=== PATIENT | male | born 1975 | race Caucasian/White ===

== ENCOUNTER 2016-09-24 20:19 | Day surgery (SDC) | payer OTHER ==
[~2016-09-24] VITALS: Ht 180.3 cm; Wt 71.1 kg
[2016-09-24] MEDS ORDERED: GLUCAGON FOR INJ 1 MG VIAL (J1610) IV STA (21:34)
[2016-09-24] MEDS ORDERED: PANTOPRAZOLE 40MG INJ (PROTONIX) (C9113) IV ONE (21:45)
[2016-09-24] MEDS ORDERED: ONDANSETRON 4MG/2ML VIAL (J2405) IV ONE (21:45)
[2016-09-24] MEDS ORDERED: MORPHINE 2 MG/ML 1ML SYRINGE IV PRN (21:45)
[2016-09-24] MEDS: NS 1,000 ML IV SCH (21:49)
[2016-09-24 21:55] LABS: BASO % 0.5 % (0.0-1.0); EOS # 0.2 K/mm3 (0.0-0.50); EOS % 2.7 % (0.0-3.0); LARGE UNSTAINED CELL # 0.1 K/mm3 (0.0-0.4); LYMPH # 1.6 K/mm3 (1.5-4.5); LYMPH % 21.2 % (24.0-44.0); MEAN CORPUSCULAR HEMOGLOBIN 28.6 pg (27.0-33.0); MEAN CORPUSCULAR HGB CONC 33.2 g/dl (32.0-36.5); MEAN CORPUSCULAR VOLUME 86.1 fl (80.0-96.0); MONO # 0.3 K/mm3 (0.0-0.8); MONO % 3.5 % (0.0-5.0); NEUTROPHILS # 5.3 K/mm3 (1.8-7.7); PLATELET COUNT, AUTOMATED 246 k/mm3 (150-450); RED CELL DISTRIBUTION WIDTH 12.7 % (11.5-14.5); WHITE BLOOD COUNT 7.5 K/mm3 (4.0-10.0)
[2016-09-24 22:04] LABS: INR 0.94
[2016-09-24 22:15] LABS: ALBUMIN 4.3 GM/DL (3.2-5.2); ALBUMIN/GLOBULIN RATIO 1.34 (1.00-1.93); ALKALINE PHOSPHATASE 59 U/L (45-117); ALT/SGPT 20 U/L (12-78); ANION GAP 6 MEQ/L (8-16); AST/SGOT 13 U/L (15-37); BILIRUBIN,DIRECT 0.1 MG/DL (0.0-0.2); BILIRUBIN,TOTAL 0.4 MG/DL (0.2-1.0); BLOOD UREA NITROGEN 9 MG/DL (7-18); CALCIUM LEVEL 8.8 MG/DL (8.5-10.1); CARBON DIOXIDE LEVEL 30 MEQ/L (21-32); CHLORIDE LEVEL 105 MEQ/L (98-107); GLOMERULAR FILTRATION RATE > 60.0 (>60); GLUCOSE, FASTING 99 MG/DL (70-105); POTASSIUM SERUM 4.3 MEQ/L (3.5-5.1); SODIUM LEVEL 141 MEQ/L (136-145); TOTAL PROTEIN 7.5 GM/DL (6.4-8.2)
[2016-09-25] MEDS: NS 1,000 ML IV SCH (00:12)
[2016-09-25] MEDS ORDERED: LIDOCAINE 2% INJ 100 MG/5 ML SDV (FOR ANES.) As Ordered ONE (01:41)
[2016-09-25] MEDS ORDERED: PROPOFOL 200 MG/20 ML VIAL As Ordered ONE (01:41)
[2016-09-25] MEDS ORDERED: fentaNYL 100 MCG/2 ML INJECTION (J3010) As Ordered ONE (01:41)
[2016-09-25] MEDS ORDERED: SUCCINYLCHOLINE 100 MG/5 ML SYRINGE (J0330) As Ordered ONE (01:41)
[2016-09-25] MEDS ORDERED: MIDAZOLAM INJ 2 MG/2 ML VIAL (J2250) As Ordered ONE (01:41)
--- NOTE | 2016-09-25 02:07 | REP ---
Clinical: Lower chest and abdominal pain . Comparison: 02/16/2011 . Technique: PA and lateral. Findings: The mediastinum and cardiac silhouette are normal. The lung mae are clear and without acute consolidation, effusion, or pneumothorax. The skeletal structures are intact and normal. Impression: 1. No acute cardiopulmonary process. Signed by Romaine Pace MD 09/25/2016 01:59 A
[2016-09-25] MEDS ORDERED: PERCOCET 5MG/325MG TAB As Ordered ONE (02:11)
[2016-09-25] MEDS ORDERED: ONDANSETRON 4MG/2ML VIAL (J2405) IV PRN (02:15)
[2016-09-25] MEDS ORDERED: METOCLOPRAMIDE INJ 10MG/2ML VIAL (J2765) IV PRN (02:15)
[2016-09-25] MEDS ORDERED: fentaNYL 100 MCG/2 ML INJECTION (J3010) IV PRN (02:15)
[2016-09-25] MEDS ORDERED: MEPERIDINE INJ 25 MG/ML VIAL (J2175) IV PRN (02:15)
[2016-09-25] MEDS ORDERED: PERCOCET 5MG/325MG TAB PO PRN (02:15)
[2016-09-25] MEDS ORDERED: LR 1,000 ML IV SCH (02:15)
[2016-09-25 02:30] VITALS: BP 104/71
[2016-09-25 03:00] VITALS: BP 101/59
[2016-09-25 03:30] VITALS: BP 108/62
--- NOTE | 2016-09-27 09:16 | CR ---
DATE OF CONSULTATION: 09/25/2016 REASON FOR CONSULTATION: 40-year white male who presents to emergency room for food impaction. The patient has a known history of pathology diagnosed eosinophilic esophagitis. The patient has lost 30-40 pounds, he used to weigh 190 and now he weighs 150. He consistently has trouble with food getting stuck. He has had a previous upper endoscopy with balloon dilatation and biopsies about a year ago, which the diagnosis of eosinophilic esophagitis was noted. The patient now presents again with another food impaction after eating a steak. MEDICATIONS: None. ALLERGIES: PENICILLIN. PHYSICAL EXAMINATION: GENERAL: Well developed, well-nourished white male in no obvious acute distress. Appears stated age. Chest is clear to auscultation. Cardiovascular exam showed regular rhythm. No murmurs or gallops. Normal physiological split of S2. ABDOMEN: Soft, nontender. No masses, guarding, rebound, hepatosplenomegaly. Bowel sounds positive. EXTREMITIES: No cyanosis, clubbing, edema. Rocio's negative. ANALYSIS: Esophageal food impaction. PLAN: Urgent upper endoscopy under general anesthesia and we will consider restarting his PPI twice a day and repeat upper endoscopy with dilatation as an outpatient.
--- NOTE | 2016-09-28 22:20 | RO ---
DATE OF PROCEDURE: 09/25/2016 PREPROCEDURE DIAGNOSIS/INDICATIONS: Possible Esophageal food impaction. POSTPROCEDURE DIAGNOSIS: PROCEDURE: Esophagogastroduodenoscopy. SURGEON: Andrew More MD WHOLESALE ACCOUNT EXECUTIVE: ANESTHESIA/MEDICATION: General anesthesia. DESCRIPTION OF PROCEDURE: Olympus GIF-190 video gastroscope was passed into the esophagus under direct vision without difficulty. No evidence of esophageal varices, tumors, or mass lesions seen. The esophagus showed endoscopic findings consistent with a known previous diagnosis of eosinophilic esophagitis. There was no evidence of any food impaction. Passed the scope into the stomach, and the food impaction was noted in a pool of fluid in the cardiac stomach. The rest of the cardia, fundus, body, antrum, pylorus, and duodenal bulb was found to be normal. We then withdrew the scope. The patient tolerated the procedure well. ANALYSIS: Esophageal food impaction, resolved at present time. PLAN: 1. Will be to see patient back in the office for repeat upper endoscopy with dilatation. 2. The patient should be maintained on a proton pump inhibitor twice a day. 3. Blenderized and soft liquid diet, soft foods only. No meat or chicken or pork has been advised.
== END 2016-09-25 03:45 | disposition home or self-care (01) ==
LOC: M ED 20:19 → M SDC 20:20 → M ED INP 09-25 00:35 → M SDC 09-25 00:35 → M PED 09-25 00:35 → M ED 09-25 00:35 → UNDOADMIN 09-25 00:35 → M PED 09-25 02:30 → M ED INP 09-25 02:30 → M PED 09-25 03:45 → M SDC 09-25 03:45 → M PED 09-25 04:07 → M ED INP 09-25 04:07 → UNDODISIN 09-25 04:08
PROVIDERS: ATTEND Internal Medicine Gastroenterology
DX: T17.920A Food in respiratory tract, part unspecified causing asphyxiation, initial encounter (principal); X58.XXXA Exposure to other specified factors, initial encounter; Y92.89 Other specified places as the place of occurrence of the external cause; Y93.89 Activity, other specified; Y99.8 Other external cause status; K20.0 Eosinophilic esophagitis; Z88.0 Allergy status to penicillin

== ENCOUNTER 2017-11-17 08:49 | Day surgery (SDC) | payer OTHER ==
[2017-11-17] MEDS: GLUCAGON FOR INJ 1 MG VIAL (J1610) IV (09:25)
[2017-11-17] MEDS: NS 1,000 ML IV (09:29)
[2017-11-17 09:39] LABS: BASO % 0.5 % (0.0-1.0); EOS # 0.4 10^3/uL (0.0-0.50); EOS % 6.9 % (0.0-3.0); HEMOGLOBIN 13.4 g/dl (13.5-17.5); IMMATURE GRANULOCYTE % 0.2 % (0-3.0); LYMPH % 31.4 % (24.0-44.0); MEAN CORPUSCULAR HGB CONC 32.7 g/dl (32.0-36.5); MEAN CORPUSCULAR VOLUME 85.8 fl (80.0-96.0); MONO # 0.5 10^3/uL (0.0-0.8); MONO % 7.9 % (0.0-5.0); NEUTROPHILS # 3.4 10^3/uL (1.8-7.7); NEUTROPHILS % 53.1 % (36.0-66.0); PLATELET COUNT, AUTOMATED 243 10^3/uL (150-450); RED BLOOD COUNT 4.78 10^6/uL (4.30-6.10); RED CELL DISTRIBUTION WIDTH 12.9 % (11.5-14.5); WHITE BLOOD COUNT 6.4 10^3/uL (4.0-10.0)
[2017-11-17 09:53] LABS: ANION GAP 9 MEQ/L (8-16); BLOOD UREA NITROGEN 12 MG/DL (7-18); CALCIUM LEVEL 8.8 MG/DL (8.5-10.1); CARBON DIOXIDE LEVEL 26 MEQ/L (21-32); CHLORIDE LEVEL 108 MEQ/L (98-107); CPK CREATINE PHOSPHOKINASE 145 U/L (39-308); CREATININE FOR GFR 0.94 MG/DL (0.70-1.30); GLOMERULAR FILTRATION RATE > 60.0 (>60); GLUCOSE, FASTING 100 MG/DL (70-100); MB/CK RELATIVE INDEX 0.76 (< OR =4); POTASSIUM SERUM 3.8 MEQ/L (3.5-5.1); SODIUM LEVEL 143 MEQ/L (136-145); TROPONIN I < 0.02 NG/ML (< 0.10)
[2017-11-17] MEDS: NITROGLYCERIN 0.4 MG SUBL TABLET SL (10:14)
[2017-11-17] MEDS ORDERED: MORPHINE 2 MG/ML 1ML SYRINGE (J2270) IV (10:45)
[2017-11-17] MEDS ORDERED: LIDOCAINE 2% INJ 100 MG/5 ML SDV (FOR ANES.) As Ordered (10:55)
[2017-11-17] MEDS ORDERED: SUCCINYLCHOLINE 100 MG/5 ML SYRINGE (J0330) As Ordered (10:55)
[2017-11-17] MEDS ORDERED: PROPOFOL 200 MG/20 ML VIAL As Ordered ×2 (10:55→11:37)
[2017-11-17] MEDS ORDERED: ROCURONIUM BROMIDE 50 MG/5 ML VIAL As Ordered (10:55)
[2017-11-17] MEDS ORDERED: fentaNYL 100 MCG/2 ML INJECTION (J3010) As Ordered (10:56)
[2017-11-17] MEDS ORDERED: MIDAZOLAM INJ 2 MG/2 ML VIAL (J2250) As Ordered (10:56)
[2017-11-17] MEDS ORDERED: GLYCOPYRROLATE INJ 0.2 MG/ML 2 ML VIAL As Ordered (11:42)
[2017-11-17] MEDS ORDERED: NEOSTIGMINE 10 MG/10 ML VIAL (J2710) As Ordered (11:42)
[2017-11-17] MEDS ORDERED: dexameTHASONE 4 MG/ML 1ML VIAL (J1100) As Ordered (11:45)
[2017-11-17] MEDS ORDERED: ONDANSETRON 4MG/2ML VIAL (J2405) As Ordered (11:45)
== END 2017-11-17 13:35 | disposition home or self-care (01) ==
LOC: M ED 08:49 → M SDC 10:48 → M PED 12:45 → M SDC 13:35
DX: T18.128A Food in esophagus causing other injury, initial encounter (principal); K22.9 Disease of esophagus, unspecified; Z72.0 Tobacco use; X58.XXXA Exposure to other specified factors, initial encounter; Y93.89 Activity, other specified; Y92.89 Other specified places as the place of occurrence of the external cause; Y99.9 Unspecified external cause status
CPT/HCPCS: 43215

== ENCOUNTER 2020-12-06 11:23 | Inpatient (IN) | payer OTHER ==
[~2020-12-06] VITALS: Ht 180.3 cm; Wt 92.7 kg
[2020-12-06] MEDS ORDERED: ONDANSETRON 4MG/2ML VIAL IV ONE (12:45)
[2020-12-06] MEDS ORDERED: MORPHINE 4 MG/ML 1ML VIAL/SYRINGE (J2270) IV ONE ×2 (12:45→14:05)
[2020-12-06 13:25] LABS: BASO % 0.1 % (0.0-1.0); HEMATOCRIT 41.4 % (42.0-52.0); HEMOGLOBIN 13.3 g/dl (13.5-17.5); LYMPH % 8.7 % (24.0-44.0); MEAN CORPUSCULAR HEMOGLOBIN 26.6 pg (27.0-33.0); MEAN CORPUSCULAR HGB CONC 32.1 g/dl (32.0-36.5); MEAN CORPUSCULAR VOLUME 82.8 fl (80.0-96.0); MONO % 8.3 % (2.0-8.0); NEUTROPHILS # 9.8 10^3/uL (1.5-8.5); NEUTROPHILS % 81.5 % (36.0-66.0); PLATELET COUNT, AUTOMATED 517 10^3/uL (150-450)
[2020-12-06 13:57] LABS: ALBUMIN 2.3 GM/DL (3.2-5.2); ALT/SGPT 126 U/L (12-78); AMYLASE 181 U/L (25-115); BILIRUBIN,DIRECT 0.3 MG/DL (0.0-0.2); BILIRUBIN,TOTAL 0.7 MG/DL (0.2-1.0); BLOOD UREA NITROGEN 9 MG/DL (7-18); CALCIUM LEVEL 7.8 MG/DL (8.5-10.1); CARBON DIOXIDE LEVEL 28 MEQ/L (21-32); CHLORIDE LEVEL 100 MEQ/L (98-107); CK-MB VALUE MASS 1.2 NG/ML (<3.6); CPK CREATINE PHOSPHOKINASE 157 U/L (39-308); CREATININE FOR GFR 0.84 MG/DL (0.70-1.30); GLOMERULAR FILTRATION RATE > 60.0 (>60); GLUCOSE, FASTING 99 MG/DL (70-100); LIPASE 1028 U/L (73-393); MB/CK RELATIVE INDEX 0.76 (< OR =4); POTASSIUM SERUM 3.8 MEQ/L (3.5-5.1); SODIUM LEVEL 136 MEQ/L (136-145); TOTAL PROTEIN 6.9 GM/DL (6.4-8.2); TROPONIN I < 0.02 NG/ML (< 0.10)
[2020-12-06] MEDS ORDERED: NS 1,000 ML IV SCH (14:10)
[2020-12-06] MEDS: GASTROGRAFIN SOLUTION 30ML PO SCH ×2 (14:46→14:49)
[2020-12-06] MEDS ORDERED: ISOVUE-370 76% 100ML VIAL As Ordered ONE (15:06)
[2020-12-06 15:57] LABS: RSV AMPLIFICATION NEGATIVE (NEGATIVE)
[2020-12-06] MEDS ORDERED: HYDROMORPHONE HCL 0.5 MG/ 0.5 ML SYRINGE (J1170 PER 1) IV PRN (16:20)
--- NOTE | 2020-12-06 16:29 | REP ---
INDICATION: abd pain. COMPARISON: None TECHNIQUE: Axial contrast-enhanced images from the lung bases to the pubic symphysis using oral and 100 cc Isovue 370 intravenous contrast material. Coronal and sagittal reformations obtained. This CT examination was performed using the following dose reduction techniques: Automated exposure control, adjustment of mA and/or kv according to the patient's size, and the use of iterative reconstruction technique. FINDINGS: Lung bases demonstrate extensive airspace disease consistent with multifocal pneumonia. Differential diagnosis includes COVID-19 pulmonary disease. Liver demonstrates diffuse fatty infiltration without focal hepatic lesion. Spleen, pancreas, gallbladder, bilateral adrenal glands and kidneys are normal. Moderate hiatal hernia at the gastroesophageal junction noted. No evidence for bowel obstruction or acute inflammatory process. Scattered sigmoid diverticula noted without acute diverticulitis. Normal terminal ileum and appendix identified in the right lower quadrant. Pelvis demonstrates normal bladder and age-appropriate prostate/seminal vesicles. No ascites. No free air. No intraperitoneal or retroperitoneal adenopathy. Abdominal aorta and vasculature appear normal. Musculoskeletal structures are intact and without acute osseous abnormality. IMPRESSION: 1. Significant diffuse bilateral pulmonary infiltrates consistent with multifocal pneumonia and COVID-19 pulmonary disease. Correlation is required. 2. Hepatosteatosis. 3. No further acute abdominopelvic pathology appreciated. <Electronically signed by Romaine Pace > 12/06/20 [id number]
[2020-12-06] MEDS ORDERED: HOME MED LIST COMPLETE! XX SCH (17:15)
[2020-12-06] MEDS ORDERED: IBUPROFEN 600MG TAB PO PRN (17:20)
[2020-12-06] MEDS ORDERED: MORPHINE 4 MG/ML 1ML VIAL/SYRINGE (J2270) IV PRN (17:20)
[2020-12-06] MEDS ORDERED: PANTOPRAZOLE 40MG VIAL (C9113 PER 1) IV SCH (18:00)
[2020-12-06] MEDS: LR 1,000 ML IV SCH ×2 (19:12→21:53)
--- NOTE | 2020-12-06 19:22 | ECGEPIP ---
[facility] - ED Test Date: 2020-12-06 Pat Name: CARLOS MENJIVAR Department: Room: - Gender: Male [employer]: daemon : 1975 Requested By: William Paulino Order Number: [id number] Reading MD: William Paulino Measurements Intervals [place] Rate: 93 P: 26 W[place]: 178 QRS: 1 QRSD: 78 T: 3 QT: 346 QTc: 430 Interpretive Statements Normal sinus rhythm Nonspecific T wave abnormality Delayed R wave progression cw 11/17/[address] T wave changes Electronically Signed on 12-06-2020 19:22:32 EDT by William Paulino
[2020-12-06 20:00] VITALS: BP 116/67; O2SAT 86
[2020-12-06] MEDS ORDERED: MORPHINE 2 MG/ML 1ML VIAL (J2270) IV ONE (20:45)
--- NOTE | 2020-12-06 21:30 | HPEPDOC ---
General Date of Admission Dec 06, 2020 at 16:46 Date of Service: Dec 06, 2020 Chief Complaint The patient is a 45-year-old male admitted with a reason for visit of Covid, Pancreatitis. Source: Patient History of Present Illness 45-year-old male with no past medical history presented to the emergency room with 2 days history of nausea, vomiting, diarrhea and headache. Patient's was also sick today and dog was also sick. Patient initially felt that they may have had carbon monoxide exposure so called fire department. Fire department found a carbon monoxide of 44 bpm from the stove when turned on. EMS was called and patient was brought to the emergency room for suspected carbon monoxide exposure. Carbon monoxide level in the patient was only 2%. In the ED he complained of severe periumbilical pain. Constant sharp 10/10 in intensity which required several doses of morphine and hydromorphine to control. Patient was also noted to be febrile at 100.2. He also complained of 3-4 episodes of diarrhea every day for 2 days which was liquid brown stool. He has been nauseous and vomiting and has not been able to keep any food down. COVID testing in the ED was found to be positive. Patient is unvaccinated. Labs were significant for transaminitis, elevated lipase. Patient was admitted for acute pancreatitis and COVID infection. Home Medications Scheduled PRN Hydrocodone/Acetaminophen (Hydrocodone-Acetamn 7.5-325/15) 15 Ml Solution, 10 ML PO Q4HP PRN for SEVERE PAIN (PS 8-10) Ondansetron HCl (Zofran) 4 Mg Tablet, 1 TAB PO Q6HP PRN for NAUSEA Allergies Coded Allergies: Penicillins (Verified Allergy, Unknown, SOB, 12/06/20) Past Medical History Medical History Eosinophilic esophagitis with history of food infective impaction in the esophagus needing balloon dilatations Schatzi ring dilated Ankylosing spondylitis Chronic pain syndrome with h/o chronic narcotic use in the past. Hiatal hernia and reflux Surgical History None Family History Significant Family History: Cancer (Father), COPD (Father), Heart disease, Other (Ankylosing spondylitis in both father and mother) Social History * Smoker: non-smoker Alcohol: Denies Drugs: denies A-FIB/CHADSVASC A-FIB History Current/History of A-Fib/PAF?: No Review of Systems Constitutional: Reports: Fever, Weakness, Fatigue Eyes: Denies: Pain, Vision change ENT: Reports: Sinus Congestion, Sore Throat Skin: Denies: Rash, Lesions, Breakdown Pulmonary: Reports: Cough Cardiovascular: Denies: Chest Pain, Palpitations, Orthopnea, Paroxysmal Noc. Dyspnea, Lt Headedness Gastrointestinal: Reports: Nausea, Vomiting, Abdominal Pain, Diarrhea Genitourinary: Denies: Dysuria, Frequency, Incontinence, Retention Hematologic: Denies: Bruising, Bleeding Excessively Musculoskeletal: Reports: Back Pain, Joint Pain; Denies: Neck Pain, Muscle Pain, Spasms Physical Examination General Exam: Positive: Alert, Cooperative, No Acute Distress Eye Exam: Positive: PERRLA, Conjunctiva & lids normal, EOMI; Negative: Sclera icteric ENT Exam: Positive: Atraumatic, Mucous membr. moist/pink, Pharynx Normal Neck Exam: Positive: Supple; Negative: JVD, thyromegaly Chest Exam: Positive: Normal air movement, Other (Bibasilar crackles) Heart Exam: Positive: Rate Normal, Regular Rhythm, Normal S1, Normal S2; Negative: Murmurs, Rubs Abdomen Exam: Positive: Normal bowel sounds, Soft, Tenderness (In the periumbilical region), Other (No guarding or rigidity); Negative: Hepatospenomegaly Extremity Exam: Negative: Clubbing, Cyanosis, Edema Psych Exam: Positive: Memory Intact, Oriented x 3 Vital Signs Vital Signs Date Time Temp Pulse Resp B/P (MAP) Pulse Ox O2 Delivery O2 Flow Rate FiO2 12/06/20 20:21 20 Room Air 12/06/20 19:32 84 108/61 (77) 94 12/06/20 16:38 100.2 12/06/20 13:07 12.0 Laboratory Data Labs 24H Laboratory Tests 2 12/06/20 11:41: Immature Granulocyte % (Auto) 1.4, Neutrophils (%) (Auto) 81.5H, Lymphocytes (%) (Auto) 8.7L, Monocytes (%) (Auto) 8.3H, Eosinophils (%) (Auto) 0.0, Basophils (%) (Auto) 0.1, Neutrophils # (Auto) 9.8H, Lymphocytes # (Auto) 1.0L, Monocytes # (Auto) 1.0H, Eosinophils # (Auto) 0.0, Basophils # (Auto) 0.0, Nucleated Red Blood Cells % (auto) 0.0, Carboxyhemoglobin 2.0H, Anion Gap 8, Glomerular Filtration Rate > 60.0, Calcium Level 7.8L, Total Bilirubin 0.7, Direct Bilirubin 0.3H, Aspartate Amino Transf (AST/SGOT) 118H, Alanine Aminotransferase (ALT/SGPT) 126H, Alkaline Phosphatase 161H, Total Creatine Kinase 157, Creatine Kinase MB 1.2, Creatine Kinase MB Relative Index 0.76, Troponin I < 0.02, Total Protein 6.9, Albumin 2.3L, Albumin/Globulin Ratio 0.5, Amylase Level 181H, Lipase 1028H 12/06/20 14:44: Coronavirus (COVID-19)(PCR) POSITIVEA, Influenza Type A (RT-PCR) NEGATIVE, Influenza Type B (RT-PCR) NEGATIVE, Respiratory Syncytial Virus (PCR) NEGATIVE CBC/BMP Laboratory Tests 12/06/20 11:41 Assessment/Plan 45-year-old male with no past medical history presented to the emergency room wi th 2 days history of nausea, vomiting, diarrhea and headache. He was found to have a transaminitis, elevated lipase and he was positive for COVID though not hypoxic. CT abdomen and pelvis was negative for any acute abdominal findings but did show. Significant diffuse bilateral pulmonary infiltrates consistent with multifocal pneumonia and COVID-19 pulmonary disease, Hyposteatosis and moderate hiatal hernia. COVID-19 pneumonia No hypoxia at present. Monitor oxygen saturations every 4 hours. Will get Covid labs Will not start on any Decadron. If patient becomes hypoxic then will start on steroids and remdesivir Abdominal pain Disproportionate to clinical findings requiring more of several doses of morphine and hydromorphine Possible acute pancreatitis Patient has transaminitis CT abdomen and pelvis did not show any biliary tree dilatation or CBD dilatation and did not reveal any gallstones in the gallbladder.. Pancreas was normal We will get MRCP of the abdomen to get a better picture of the pancreas and to rule out any biliary tree obstruction. There is no history of any medication intake and no history of any alcohol intake. Acute pancreatitis could be part of viral infection. We will keep n.p.o. except for ice chips and sips of water Start on Ringer's lactate Transaminitis Rule out biliary obstruction We will get MRCP But likely this is part of Covid infection. History of ankylosing spondylitis/chronic back pain Patient needs to follow with pain clinic many years ago and used to be on narcotics. Eosinophilic esophagitis/hiatal hernia/GERD Continue PPI twice daily Plan / VTE VTE Prophylaxis Ordered?: Yes Nehal Morley MD Dec 06, 2020 20:55
--- NOTE | 2020-12-06 21:32 | IPNPDOC ---
Text Note Date of Service Significant event NOTE Patient pain uncontrolled by morphine. Notably crying position. Plan for Dilaudid trial with parameters. Consider de-escalation in a.m. pending patient response Update: Pt spo2 84-86% on RA. Pt seen at bedside; he is resting comfortably upon exam entrance, appears to be dozing off. Nonlabored breathing. Spo2 RA 89%, RR 14. O2 2L NC applied pt 92%. Pt reports he is 5/10 abdominal pain center region; which is improved as he has "been in pain all night" and the inc to 0.6mg dilaudid helped. Hr 76 RRR, He describes some SOB, but reports he is breathing better now. He is concerned about his pain medication being held now as he is hypoxic; however he does have noticeable lower rales and thus desat could be covid v medication component. As he is alert and RR greater than 12 will not give narcan presently. CXR ordered given desat and ABG. However, with chart review MRI abd had been completed and showed lower consolidation. Also showed "No cholelithiasis or choledocholithiasis. No dilation of the bile ducts." Will initiate covid treatment with remdesivir, breathing treatments and steroids as noted in attendings note. At present Dilaudid held. Pt has toradol prn during this monitoring period. VS,Fishbone, I+O VS, Fishbone, I+O Laboratory Tests 12/06/20 11:41 Vital Signs Date Time Temp Pulse Resp B/P (MAP) Pulse Ox O2 Delivery O2 Flow Rate FiO2 12/06/20 20:21 20 Room Air 12/06/20 19:32 84 108/61 (77) 94 12/06/20 16:38 100.2 12/06/20 13:07 12.0 GILES CHARLES NP Dec 06, 2020 21:32
[2020-12-06] MEDS: HYDROMORPHONE HCL 0.5 MG/ 0.5 ML SYRINGE (J1170 PER 1) IV PRN (21:54)
[2020-12-06 23:35] LABS: INR 1.34
[2020-12-06 23:36] LABS: PARTIAL THROMBOPLASTIN TIME 37.5 SECONDS (25.9-37.0)
[2020-12-06 23:38] LABS: D-DIMER QUANT 3748.44 ng/ml (<500)
[2020-12-06 23:49] LABS: ALBUMIN 1.9 GM/DL (3.2-5.2); BILIRUBIN,DIRECT 0.2 MG/DL (0.0-0.2); BILIRUBIN,TOTAL 0.5 MG/DL (0.2-1.0); TOTAL PROTEIN 5.7 GM/DL (6.4-8.2)
[2020-12-07] VITALS: O2SAT 91
[2020-12-07] MEDS: KETOROLAC 30 MG/ML 1ML VIAL IV PRN ×3 (00:33→17:27)
--- NOTE | 2020-12-07 00:59 | REPVR ---
PROCEDURE INFORMATION: Exam: MR Abdomen Without Contrast Exam date and time: 12/06/2020 11:48 PM Age: 45 years old Clinical indication: Abdominal pain; Acute; Additional info: Pancreatits / choledocholithiasis. The patient was unable to complete the examination. TECHNIQUE: Imaging protocol: MR of the abdomen without contrast. COMPARISON: CT ABD/PEL W/IV ORAL CONTRAST 12/06/2020 4:07 PM (The report from this study was not available for review at the time of this interpretation.) FINDINGS: Lungs: There is extensive patchy consolidation in both lower lobes, right middle lobe, and lingula, which can also be seen in the CT abdomen and pelvis on 12/06/2020. The lungs were not fully imaged. Mediastinal space: There is a moderate to large hiatal hernia. Liver: Unremarkable. No liver lesion is identified. The contour of the liver is smooth. No hepatomegaly is noted. Gallbladder and bile ducts: No stones or masses are seen in the gallbladder. There is no gallbladder wall thickening, pericholecystic fluid, or inflammatory fat stranding around the gallbladder. No dilation of the bile ducts is present. The common bile duct is normal caliber measures 3 mm in diameter. No choledocholithiasis is noted. Pancreas: Normal in appearance. No mass or dilation of the main pancreatic duct is noted. No inflammatory fat stranding is seen around the pancreas. Spleen: Normal. No splenomegaly is noted. Adrenal glands: Normal. No adrenal mass is noted. Kidneys and ureters: The kidneys are normal in appearance. No hydronephrosis. Stomach and bowel: No dilated loops of bowel are noted. The bowel was not fully imaged. Retroperitoneal space: Unremarkable. Intraperitoneal space: No fluid collection in the abdomen. Arteries: No abdominal aortic aneurysm. Lymph nodes: No enlarged lymph nodes. Bones/joints: Unremarkable. Soft tissues: Unremarkable. IMPRESSION: 1. No cholelithiasis or choledocholithiasis. No dilation of the bile ducts. 2. Extensive patchy consolidation in both lower lobes, right middle lobe, and lingula, which can also be seen in the CT abdomen and pelvis on 12/06/2020 and may represent pneumonia, including COVID-19 pneumonia. 3. Moderate to large hiatal hernia. Electronically signed by: Wero Medina On 12/07/2020 00:59:29 AM
[2020-12-07] MEDS: HYDROMORPHONE HCL 0.5 MG/ 0.5 ML SYRINGE (J1170 PER 1) IV PRN ×6 (02:26→21:47)
[2020-12-07] MEDS: LR 1,000 ML IV SCH ×4 (03:34→19:25)
[2020-12-07] MEDS ORDERED: diphenhydrAMINE 50MG/ML VIAL (J1200) IV ONE (04:45)
[2020-12-07] MEDS ORDERED: HYDROMORPHONE HCL 0.5 MG/ 0.5 ML SYRINGE (J1170 PER 1) IV PRN ×2 (04:45→08:15)
[2020-12-07] MEDS: PANTOPRAZOLE 40MG VIAL (C9113 PER 1) IV SCH ×2 (05:34→17:27)
[2020-12-07] MEDS ORDERED: NALOXONE INJ 0.4MG/1ML VIAL (J2310 PER 1MG) IV STA (05:53)
[2020-12-07] MEDS ORDERED: dexameTHASONE 4 MG/ML 1ML VIAL (J1100 PER 1MG) IV SCH (05:55)
[2020-12-07 06:00] VITALS: BP 131/78
[2020-12-07 06:10] VITALS: O2SAT 91
[2020-12-07 06:21] LABS: ABG BASE EXCESS 1.2 (-2.0-2.0); ABG HCO3 24.4 MEQ/L (22.0-26.0); ABG O2 SATURATION 91.9 % (95.0-99.0); ABG PARTIAL PRESSURE CO2 33.8 mmHg (35.0-45.0); ABG PARTIAL PRESSURE O2 60.1 mmHg (75.0-100.0); ABG STANDARD HCO3 25.5 MEQ/L (22.0-26.0); ABG TOTAL CO2 25.4 MEQ/L (22.0-29.0); ABG pH (ARTERIAL) 7.476 UNITS (7.350-7.450)
[2020-12-07] MEDS ORDERED: ALBUTEROL 90 MCG/ACT 8GM HFA INHALER INH PRN (06:25)
--- NOTE | 2020-12-07 07:28 | REPVR ---
PROCEDURE INFORMATION: Exam: XR Chest Exam date and time: 12/07/2020 6:45 AM Age: 45 years old Clinical indication: Shortness of breath; Additional info: Desat TECHNIQUE: Imaging protocol: XR of the chest. Views: 1 view. COMPARISON: 1. CR Chest, 2 view PA, Lat 09/24/2016 10:[address] ABD/PEL W/IV ORAL CONTRAS 12/06/2020 4:07:50 PM FINDINGS: Lungs: There is extensive bilateral patchy airspace disease, which is most prominent in the periphery of the lungs, with confluent areas of opacity laterally in the right lower chest and laterally in the left mid chest. This correlates with the findings through the lung bases on the recent prior CT scan. The findings were not present on the prior chest x-ray from 2017. Pleural spaces: No pleural effusions or pneumothorax identified. Heart/Mediastinum: The heart is normal in size. Bones/joints: No suspicious osseous lesions. No acute fractures. IMPRESSION: Extensive bilateral, peripheral predominant, patchy airspace disease, correlating with the findings through the lung bases on the recent prior CT scan of the abdomen and pelvis. Commonly reported imaging features of COVID-19 pneumonia are present. Other processes such as influenza pneumonia and organizing pneumonia, as can be seen with drug toxicity and connective tissue disease, can cause a similar imaging pattern. (Reference: Jostin) REFERENCES: Jostin Lozoya, et al., Radiological Society of [place] Expert Consensus Statement on Reporting Chest CT Findings Related to COVID-19. Endorsed by the Society of Thoracic Radiology, the [place] [employer], and RSNA. Published May 21, 2019. Electronically signed by: Laura Alvares On 12/07/2020 07:27:32 AM
[2020-12-07] MEDS: COMBIVENT RESPIMAT 100-20MCG INHALER 4GM INH SCH ×3 (07:58→21:08)
[2020-12-07] MEDS: ENOXAPARIN 40MG/0.4ML SYRINGE (J1650 PER 10MG) SC SCH (08:13)
[2020-12-07] MEDS ORDERED: GABAPENTIN 100 MG CAP PO ONE (08:20)
[2020-12-07 08:34] LABS: BASO % 0.1 % (0.0-1.0); EOS # 0.1 10^3/uL (0.0-0.5); EOS % 0.8 % (0.0-3.0); HEMATOCRIT 36.5 % (42.0-52.0); HEMOGLOBIN 11.7 g/dl (13.5-17.5); LYMPH # 1.1 10^3/uL (1.5-5.0); MEAN CORPUSCULAR HEMOGLOBIN 26.7 pg (27.0-33.0); MEAN CORPUSCULAR HGB CONC 32.1 g/dl (32.0-36.5); MEAN CORPUSCULAR VOLUME 83.3 fl (80.0-96.0); MONO # 0.7 10^3/uL (0.0-0.8); MONO % 7.7 % (2.0-8.0); NEUTROPHILS # 7.1 10^3/uL (1.5-8.5); PLATELET COUNT, AUTOMATED 473 10^3/uL (150-450); RED BLOOD COUNT 4.38 10^6/uL (4.30-6.10); WHITE BLOOD COUNT 9.1 10^3/uL (4.0-10.0)
[2020-12-07 09:00] LABS: ALBUMIN 1.8 GM/DL (3.2-5.2); ALT/SGPT 72 U/L (12-78); BILIRUBIN,TOTAL 0.5 MG/DL (0.2-1.0); BLOOD UREA NITROGEN 8 MG/DL (7-18); CALCIUM LEVEL 8.2 MG/DL (8.5-10.1); CARBON DIOXIDE LEVEL 27 MEQ/L (21-32); CHLORIDE LEVEL 107 MEQ/L (98-107); CREATININE FOR GFR 0.74 MG/DL (0.70-1.30); GLOMERULAR FILTRATION RATE > 60.0 (>60); GLUCOSE, FASTING 104 MG/DL (70-100); LIPASE 1138 U/L (73-393); MAGNESIUM LEVEL 2.2 MG/DL (1.8-2.4); POTASSIUM SERUM 3.4 MEQ/L (3.5-5.1); SODIUM LEVEL 140 MEQ/L (136-145); TOTAL PROTEIN 6.2 GM/DL (6.4-8.2)
[2020-12-07] MEDS ORDERED: REMDESIVIR 200 MG in NS 250 ML IV ONE (10:00)
[2020-12-07] MEDS ORDERED: SODIUM CHLORIDE 0.9% INJ 10 ML SYR IV ONE (12:00)
--- NOTE | 2020-12-07 12:45 | IPNPDOC ---
Text Note Date of Service The patient was seen on 12/07/20. NOTE Subjective: Patient is a 45-year-old male with no past medical history presented to the emergency room with 2 days history of nausea, vomiting, diarrhea and headache. Patient's is also sick and their dog was also sick. Patient initially felt that it may be secondary to carbon monoxide poisoning so he called the fire department. Fire department found, monoxide of 44 ppb from the stove when it was turned on. Patient was brought to the emergency room for suspected, monoxide exposure but is current monoxide level is only 2%. Patient complains of severe periumbilical abdominal pain that is 10/10 in intensity and is required several doses of morphine and hydromorphone to control. Patient was found to have COVID-19. Patient denies any shortness of breath. Patient was found to have transaminitis and an elevated lipase which are improving. Patient does still complain of abdominal pain and restless legs. Patient does report being hungry stating that he has not had anything to eat. Review of systems: General: Patient denies fevers HEENT: Patient denies headaches Cardiovascular: Patient denies chest pain Respiratory: Patient denies shortness of breath, cough GI: Patient reports periumbilical stabbing abdominal pain : Patient denies increased frequency or pain with urination Extremities: Patient denies swelling or pain in extremities Neurological: Patient denies numbness or tingling in legs Physical exam: Vitals: See below General: Alert and oriented male patient who was laying in bed when I walked in. Patient did not appear to be in any acute distress. HEENT: Normocephalic, atraumatic, moist mucous membranes. Neck: No lymphadenopathy or thyromegaly Cardiac: Regular rate and rhythm, no murmurs, normal S1, normal S2 Pulm: Clear to auscultation bilaterally. No wheezes, rhonchi, rales Abd: Nondistended, tenderness to palpation in the periumbilical area, no rebound tenderness, normal bowel sounds Ext: No edema bilateral lower extremities Labs: See below Imaging: CT of the abdomen and pelvis performed with IV and oral contrast on 12/2011 was reported to show significant diffuse bilateral pulmonary infiltrates consistent with multifocal pneumonia and COVID-19 pulmonary disease. Correlation is required. Pado steatosis. No further acute abdominal pelvic pathology appreciated. MRI of the abdomen without contrast performed on 12/06/2020 was reported to show no cholelithiasis or choledocholithiasis. No dilatation of the biliary ducts. Extensive patchy consolidation in both lower lobes, right middle lobe and lingula which can also be seen on CT abdomen pelvis on 12/06/2020 and may represent pneumonia, including COVID-19 pneumonia. Moderate to large hiatal hernia. Chest x-ray performed on 12/07/2020 was reported to show extensive bilateral, peripheral predominant, patchy airspace disease correlating with the findings through the lung bases on recent prior CT scan of the abdomen pelvis. Commonly reported imaging features of COVID-19 pneumonia are present. Other processes such as influenza pneumonia and organizing pneumonia, as can be seen with drug toxicity and connective tissue disease can cause a similar imaging pattern. Assessment/plan: 45-year-old male who presented to the hospital with a 2-day history of nausea, vomiting, diarrhea and headache who was found to have transaminitis and an elevated lipase as well as being COVID-19 positive 1. Abdominal pain. Disproportionate to clinical findings requiring several doses of hydromorphone to control the pain. Possible acute pancreatitis. No acute pathology found on CT or abdominal MRI. Transaminitis as well as lipase has improved. Patient is hungry and will given a low-fat diet. 2. Transaminitis. MRCP did not show biliary dilatation or obstruction and this could be secondary to the patient's COVID-19 infection. 3. COVID-19 pneumonia. Patient did become hypoxic overnight requiring 2 L of oxygen but has been doing well on this. Patient was started on dexamethasone and remdesivir last night. 4. History of ankylosing spondylitis/chronic back pain. Patient needs to follow with pain clinic as he said his many years ago needs to be on chronic narcotics. 5. History of eosinophilic esophagitis/hiatal hernia/GERD. Continue PPI therapy. DVT Prophylaxis: Lovenox Disposition: Pending clinical improvement of abdominal pain. Possible discharge tomorrow if diet can be advanced. VS,Fishbone, I+O VS, Fishbone, I+O Laboratory Tests 12/07/20 08:19 Vital Signs Date Time Temp Pulse Resp B/P (MAP) Pulse Ox O2 Delivery O2 Flow Rate FiO2 12/07/20 12:33 19 12/07/20 09:00 2.0 12/07/20 06:10 91 Nasal Cannula 12/07/20 06:00 99.1 78 131/78 (95) l I&O- Last 24 Hours up to 6 AM 12/07/20 05:59 Intake Total 600.5 ml Balance 600.5 ml МАРИЯ PRIDE DO Dec 07, 2020 12:45
[2020-12-07 14:00] VITALS: BP 130/65
[2020-12-07 20:00] VITALS: BP 118/68
[2020-12-07] MEDS: GABAPENTIN 100 MG CAP PO SCH (21:49)
[2020-12-08] MEDS: RAMELTEON 8 MG TAB (ROZEREM) PO PRN ×2 (00:51→21:31)
[2020-12-08] MEDS: HYDROMORPHONE HCL 0.5 MG/ 0.5 ML SYRINGE (J1170 PER 1) IV PRN ×6 (00:52→21:30)
[2020-12-08] MEDS: LR 1,000 ML IV SCH ×4 (00:56→19:10)
[2020-12-08] MEDS: COMBIVENT RESPIMAT 100-20MCG INHALER 4GM INH SCH ×4 (02:00→21:01)
[2020-12-08 04:10] VITALS: BP 123/76
[2020-12-08] MEDS: KETOROLAC 30 MG/ML 1ML VIAL IV PRN (06:00)
[2020-12-08] MEDS ORDERED: ANEXSIA, NORCO 7.5MG/325MG TABLET(HYDROCODONE/APAP) PO PRN (07:00)
[2020-12-08] MEDS ORDERED: NORCO, ANEXSIA 5/325MG TABLET (HYDROcodone/ACETAMINOPHEN) PO PRN (07:00)
[2020-12-08] MEDS: PANTOPRAZOLE 40MG VIAL (C9113 PER 1) IV SCH ×2 (07:10→17:22)
[2020-12-08] MEDS: GABAPENTIN 100 MG CAP PO SCH ×4 (07:13→21:31)
[2020-12-08 07:22] LABS: BASO % 0.3 % (0.0-1.0); HEMATOCRIT 34.5 % (42.0-52.0); HEMOGLOBIN 10.9 g/dl (13.5-17.5); LYMPH # 1.5 10^3/uL (1.5-5.0); LYMPH % 13.9 % (24.0-44.0); MEAN CORPUSCULAR HEMOGLOBIN 26.8 pg (27.0-33.0); MEAN CORPUSCULAR HGB CONC 31.6 g/dl (32.0-36.5); MEAN CORPUSCULAR VOLUME 84.8 fl (80.0-96.0); MONO % 9.4 % (2.0-8.0); NEUTROPHILS # 7.8 10^3/uL (1.5-8.5); NEUTROPHILS % 74.1 % (36.0-66.0); PLATELET COUNT, AUTOMATED 566 10^3/uL (150-450); RED BLOOD COUNT 4.07 10^6/uL (4.30-6.10); WHITE BLOOD COUNT 10.5 10^3/uL (4.0-10.0)
[2020-12-08 07:45] LABS: INR 1.23; PROTHROMBIN TIME 15.9 SECONDS (12.7-14.5)
[2020-12-08 07:50] LABS: ALBUMIN 1.8 GM/DL (3.2-5.2); ALT/SGPT 75 U/L (12-78); BILIRUBIN,DIRECT 0.1 MG/DL (0.0-0.2); BILIRUBIN,TOTAL 0.3 MG/DL (0.2-1.0); BLOOD UREA NITROGEN 7 MG/DL (7-18); CALCIUM LEVEL 8.2 MG/DL (8.5-10.1); CARBON DIOXIDE LEVEL 26 MEQ/L (21-32); CHLORIDE LEVEL 112 MEQ/L (98-107); CPK CREATINE PHOSPHOKINASE 125 U/L (39-308); CREATININE FOR GFR 0.85 MG/DL (0.70-1.30); FERRITIN 467 NG/ML (26-388); GLOMERULAR FILTRATION RATE > 60.0 (>60); GLUCOSE, FASTING 126 MG/DL (70-100); LDH LACTATE DEHYDROGENASE 326 U/L (87-241); NT-PRO BNP 1723 PG/ML (<125); POTASSIUM SERUM 3.4 MEQ/L (3.5-5.1); SODIUM LEVEL 145 MEQ/L (136-145); TOTAL PROTEIN 5.8 GM/DL (6.4-8.2); TROPONIN I < 0.02 NG/ML (< 0.10)
[2020-12-08] MEDS ORDERED: POTASSIUM CHLORIDE 10MEQ SR TABLET PO ONE (08:45)
[2020-12-08] MEDS: ENOXAPARIN 40MG/0.4ML SYRINGE (J1650 PER 10MG) SC SCH (09:43)
[2020-12-08] MEDS: ONDANSETRON 4MG/2ML VIAL IV PRN ×2 (09:47→17:22)
[2020-12-08] MEDS ORDERED: ISOVUE-370 76% 100ML VIAL As Ordered ONE (09:54)
--- NOTE | 2020-12-08 10:43 | REP ---
INDICATION: abdominal pain. COMPARISON: None TECHNIQUE: Axial contrast-enhanced images from the lung bases to the pubic symphysis using 100 cc Isovue 370 intravenous contrast material. Coronal and sagittal reformations obtained. This CT examination was performed using the following dose reduction techniques: Automated exposure control, adjustment of mA and/or kv according to the patient's size, and the use of iterative reconstruction technique. FINDINGS: Lung bases demonstrate significant opacities consistent with COVID-19 pulmonary disease. Liver demonstrates fatty infiltration and mild hepatomegaly without focal hepatic lesion. Spleen, pancreas, gallbladder, bilateral adrenal glands and kidneys are normal. The enteric system including stomach, small, and large bowel appears normal. No evidence for obstruction or acute inflammatory process. Normal terminal ileum and appendix are identified in the right lower quadrant. Scattered sigmoid diverticula noted without acute diverticulitis. Pelvis demonstrates normal bladder and age-appropriate prostate/seminal vesicles. No ascites. No free air. No intraperitoneal or retroperitoneal adenopathy. Abdominal aorta and vasculature appear normal. Musculoskeletal structures are intact and without acute osseous abnormality. IMPRESSION: No acute abdominopelvic pathology appreciated. Hepatosteatosis. Lung base findings consistent with COVID 19 pulmonary disease. <Electronically signed by Romaine Pace > 12/08/20 [id number]
[2020-12-08] MEDS ORDERED: HYDROMORPHONE HCL 0.5 MG/ 0.5 ML SYRINGE (J1170 PER 1) IV PRN (11:20)
[2020-12-08] MEDS: dexameTHASONE 4 MG/ML 1ML VIAL (J1100 PER 1MG) IV SCH (11:53)
[2020-12-08] MEDS: REMDESIVIR 100 MG in NS 250 ML IV SCH (11:54)
[2020-12-08] MEDS: SODIUM CHLORIDE 0.9% INJ 10 ML SYR IV SCH (11:55)
[2020-12-08 14:00] VITALS: BP 128/83
--- NOTE | 2020-12-08 15:33 | IPNPDOC ---
Text Note Date of Service The patient was seen on 12/08/20. NOTE Subjective: Patient is a 45-year-old male no past medical history presented to emergency room with 2-day history of nausea, vomiting, diarrhea and headache. Patient's is also sick and their dog was also sick. Patient was thought to initially have carbon oxide poisoning however his carbon oxide level was only 2% when he came into the emergency department. Patient has been complaining of severe periumbilical abdominal pain that is 10/10 in intensity is required jelly ral doses of morphine hydromorphone to control. Patient has had multiple CTs that have all been negative. Patient states that when he was on the Dilaudid yesterday, he was able to eat and did not have any difficulty. Patient describes his diarrhea as being black. Patient did vomit this morning. Patient is otherwise doing well at this time. Review of systems: General: Patient denies fevers HEENT: Patient denies headaches Cardiovascular: Patient denies chest pain Respiratory: Patient denies shortness of breath, cough GI: Patient reports stabbing abdominal pain as above with nausea and vomiting. : Patient denies increased frequency or pain with urination Extremities: Patient denies swelling or pain in extremities Neurological: Patient denies numbness or tingling in legs Physical exam: Vitals: See below General: Alert and oriented male patient who was laying in bed when I walked in. Patient did appear uncomfortable did not appear to be in any acute distress. HEENT: Normocephalic, atraumatic, moist mucous membranes. Neck: No lymphadenopathy or thyromegaly Cardiac: Regular rate and rhythm, no murmurs, normal S1, normal S2 Pulm: Clear to auscultation bilaterally. No wheezes, rhonchi, rales Abd: Nondistended, tenderness to palpation in the periumbilical area, no rebound tenderness, normal bowel sounds Ext: No edema bilateral lower extremities, 2/4 dorsalis pedis pulses bila terally. Labs: See below Imaging: CT of the abdomen and pelvis with IV contrast only performed on is reported to show no acute abdominal pelvic pathology appreciated. Hepatic steatosis. Lung bases consistent with COVID-19 pulmonary disease. Assessment/plan: 45-year-old male presented to the hospital with a 2-day course of nausea, vomiting, and diarrhea with headache was found to have transaminitis and elevated lipase as well as being COVID-19 positive. 1. Abdominal pain. Patient has required several doses of hydromorphone withdraw the pain. Patient was trialed on oral hydrocodone however, the patient vomited this up and was complaining that it was not helping. Patient does have a history of food impaction and needing dilation of his esophagus due to eosinophilic esophagitis. Patient is complaining more of pain in his periumbilical area. Transaminitis has improved as well as lipase which remained stable. No acute pathology found on CT and abdominal MRI. I went down reviewed the studies with radiology again after the official read was given as patient had all elevated lactic acid and patient's symptoms could possibly be ischemic bowel however, there are no findings to suggest this on the CT scans or the abdominal MRI that was performed. The patient's abdominal pain may be secondary to COVID-19. Patient was found to positive carbon monoxide poisoning when he initially presented however, at this point, the carbon oxide level should be back to normal and his blood as he has been outside of that environment for some time. Today we will continue with the hydromorphone. I have contacted general surgery about seeing the patient to see if there are any further recommendations that they can recommend. I do appreciate Dr[facility]. 2. Transaminitis. This is improved. MRCP did not show any biliary dilatation or obstruction. Mild transaminitis to be secondary to COVID-19 infection. 3. COVID-19 pneumonia. Patient did become hypoxic 2 nights ago requiring 2 L of oxygen. Patient was started on dexamethasone remdesivir. We will continue to monitor. 4. History of ankylosing spondylitis/chronic back pain. Patient needs to follow-up with pain clinic once he is discharged. 5. History of eosinophilic esophagitis/hiatal hernia/GERD. Continue PPI therapy. 6. Lactic acidosis. Patient had a lactic acidosis of 3.6. On repeat 4 hours later this was 3.0. I am unsure of exactly what is the cause of the patient's lactic acidosis. We will continue with fluid hydration. Patient's vital signs are stable at this time. Again I reviewed the imaging findings with radiology who stated that there does not appear to be any ischemic gut. Patient does not complain of pain anywhere else. Patient does not appear ill or septic at this time. We will continue to monitor. DVT Prophylaxis: Lovenox Disposition: Pending clinical improvement of abdominal pain. VS,Fishbone, I+O VS, Fishbone, I+O Laboratory Tests 12/08/20 06:31 Vital Signs Date Time Temp Pulse Resp B/P (MAP) Pulse Ox O2 Delivery O2 Flow Rate FiO2 12/08/20 15:08 20 Room Air 12/08/20 14:00 98.5 80 128/83 (98) 90 12/07/20 09:00 2.0 I&O- Last 24 Hours up to 6 AM 12/08/20 06:00 Intake Total 660 ml Output Total 1850 ml Balance -1190 ml МАРИЯ PRIDE DO Dec 08, 2020 15:33
[2020-12-08] MEDS ORDERED: LR 1,000 ML IV ONE (16:55)
[2020-12-08 21:18] VITALS: O2SAT 94
[2020-12-08 22:00] VITALS: BP 110/69
[2020-12-09] MEDS: LR 1,000 ML IV SCH ×4 (00:20→10:46)
[2020-12-09] MEDS: HYDROMORPHONE HCL 0.5 MG/ 0.5 ML SYRINGE (J1170 PER 1) IV PRN ×3 (00:20→06:37)
[2020-12-09 01:58] VITALS: O2SAT 95
[2020-12-09 03:35] VITALS: O2SAT 93
[2020-12-09 05:32] VITALS: BP 122/69
[2020-12-09] MEDS: GABAPENTIN 100 MG CAP PO SCH (06:35)
[2020-12-09] MEDS: PANTOPRAZOLE 40MG VIAL (C9113 PER 1) IV SCH (06:35)
[2020-12-09] MEDS: COMBIVENT RESPIMAT 100-20MCG INHALER 4GM INH SCH (07:38)
[2020-12-09 07:45] LABS: BASO % 0.2 % (0.0-1.0); HEMATOCRIT 35.9 % (42.0-52.0); HEMOGLOBIN 11.2 g/dl (13.5-17.5); LYMPH # 1.7 10^3/uL (1.5-5.0); LYMPH % 16.4 % (24.0-44.0); MEAN CORPUSCULAR HEMOGLOBIN 26.4 pg (27.0-33.0); MEAN CORPUSCULAR HGB CONC 31.2 g/dl (32.0-36.5); MEAN CORPUSCULAR VOLUME 84.7 fl (80.0-96.0); MONO % 9.5 % (2.0-8.0); NEUTROPHILS # 7.5 10^3/uL (1.5-8.5); NEUTROPHILS % 71.3 % (36.0-66.0); PLATELET COUNT, AUTOMATED 587 10^3/uL (150-450); RED BLOOD COUNT 4.24 10^6/uL (4.30-6.10); WHITE BLOOD COUNT 10.4 10^3/uL (4.0-10.0)
[2020-12-09 07:59] LABS: BLOOD UREA NITROGEN 8 MG/DL (7-18); CALCIUM LEVEL 8.1 MG/DL (8.5-10.1); CARBON DIOXIDE LEVEL 28 MEQ/L (21-32); CHLORIDE LEVEL 110 MEQ/L (98-107); CREATININE FOR GFR 0.83 MG/DL (0.70-1.30); GLOMERULAR FILTRATION RATE > 60.0 (>60); GLUCOSE, FASTING 123 MG/DL (70-100); LIPASE 1159 U/L (73-393); MAGNESIUM LEVEL 1.9 MG/DL (1.8-2.4); SODIUM LEVEL 143 MEQ/L (136-145)
[2020-12-09] MEDS ORDERED: HYDROcodone/APAP LIQUID 7.5-325MG 15ML UDC (LORTAB ELIXIR) PO PRN ×2 (08:00)
[2020-12-09] MEDS: REMDESIVIR 100 MG in NS 250 ML IV SCH (09:04)
[2020-12-09] MEDS: dexameTHASONE 4 MG/ML 1ML VIAL (J1100 PER 1MG) IV SCH (09:04)
[2020-12-09] MEDS: ENOXAPARIN 40MG/0.4ML SYRINGE (J1650 PER 10MG) SC SCH (09:05)
[2020-12-09] MEDS: SODIUM CHLORIDE 0.9% INJ 10 ML SYR IV SCH (09:06)
[2020-12-09] MEDS ORDERED: ZOFR4TAB16 PO ×2 (11:35→12:55)
[2020-12-09] MEDS ORDERED: HYDR1SOL22 PO ×2 (11:35→12:55)
--- NOTE | 2020-12-09 16:02 | DS.PDOC ---
Discharge Summary General Date of Admission Dec 06, 2020 at 16:46 Date of Discharge December 09, 2020 Attending Physician: МАРИЯ PRIDE DO Specialist/Consultants Involve: ANETA MCNULTY MD Discharge Summary PROCEDURES PERFORMED DURING STAY: None. ADMITTING DIAGNOSES: 1. COVID-19 pneumonia. 2. Abdominal pain 3. Transaminitis 4. History of ankylosing spondylitis/chronic back pain 5. Eosinophilic esophagitis/GERD DISCHARGE DIAGNOSES: 1. COVID-19 pneumonia, not hypoxic. 2. Abdominal pain 3. Transaminitis, improved 4. History of ankylosing spondylitis/chronic back pain 5. Eosinophilic esophagitis/GERD 6. Lactic acidosis, improved with fluid bolusing COMPLICATIONS/CHIEF COMPLAINT: Covid, Pancreatitis. HISTORY OF PRESENT ILLNESS: Patient is a 45-year-old male who presented to the emergency room with 2-day history of nausea, vomiting, diarrhea and headache. Patient's is also sick and the patient's daughter was also sick. Patient initially felt like he may have had carbon oxide exposure as we called the fire department. Fire department found car monoxide by the stool when turned on. EMS was called and patient was brought to the emergency room for suspected carbon monoxide exposure. Carbon monoxide levels patient with 2%. In the ED complaint of severe periumbilical pain. Constant sharp 10/10 intensity requiring several doses of morphine and hydromorphone to control. Patient was also noted to have a temperature 100.2. Patient complained of 3-4 episodes of diarrhea every day for 2 days which was liquid brown stool. He has been nauseous and vomiting cannot be able to keep any food down. Covid testing in the ED was found to be positive. Patient is unvaccinated. Labs were significant for transaminitis, elevated lipase. Patient was admitted for acute pancreatitis and COVID-19 infection. HOSPITAL COURSE: Patient did not have positive imaging findings however, patient was complaining of very intense pain in his abdomen. Patient never became hypoxic throughout his hospitalization. Patient's pain was difficult to control and patient required IV hydromorphone throughout most of his hospitalization in order for the patient to eat. Patient was able to keep a low-fat diet down. Patient had repeat CT scan which did not show any evidence of ischemia. Patient did have evidence of lactic acidosis which improved with fluid bolus. Patient was feeling better both still having abdominal pain on December 09, 2020. Patient was evaluated by general surgery to see if there is any other need for surgical intervention which there was not. Patient was asking to go home and all of his vital signs were stable and there was no imaging findings to suggest why the patient had such bad abdominal pain. Patient's abdominal pain may be secondary to COVID-19 causing gastroenteritis. Patient was sent home with l iquid hydrocodone as the patient struggles with pills due to eosinophilic esophagitis that the patient's had in the past. Patient was searched on the prescription monitoring program ([id number]) and was not prescribed any controlled substances in the past year. Patient was discharged home on December 09, 2020. Patient's medications were initially sent to a pharmacy that apparently does not participate in the patient's insurance program. Patient's medications need to be canceled her that pharmacy and sent to a different pharmacy. This was done just prior to the patient leaving the hospital. DISCHARGE MEDICATIONS: Please see below. ALLERGIES: Please see below. PHYSICAL EXAMINATION ON DISCHARGE: VITAL SIGNS: Please see below. General: Alert and oriented male patient who was sitting in the chair when I walked in. Patient not appear to be in any acute distress. HEENT: Normocephalic, atraumatic, moist mucous membranes. Neck: No lymphadenopathy or thyromegaly Cardiac: Regular rate and rhythm, no murmurs, normal S1, normal S2 Pulm: Clear to auscultation bilaterally. No wheezes, rhonchi, rales Abd: Nondistended, tender to palpation, no rebound tenderness, normal bowel sounds Ext: No edema bilateral lower extremities LABORATORY DATA: Please see below. IMAGING: CT of the abdomen and pelvis performed with IV and oral contrast on 12/07/2011 was reported to show significant diffuse bilateral pulmonary infiltrates consistent with multifocal pneumonia and COVID-19 pulmonary disease. Correlation is required. Pado steatosis. No further acute abdominal pelvic pathology appreciated. MRI of the abdomen without contrast performed on 12/06/2020 was reported to show no cholelithiasis or choledocholithiasis. No dilatation of the biliary ducts. Extensive patchy consolidation in both lower lobes, right middle lobe and lingula which can also be seen on CT abdomen pelvis on 12/06/2020 and may represent pneumonia, including COVID-19 pneumonia. Moderate to large hiatal hernia. Chest x-ray performed on 12/07/2020 was reported to show extensive bilateral, peripheral predominant, patchy airspace disease correlating with the findings through the lung bases on recent prior CT scan of the abdomen pelvis. Commonly reported imaging features of COVID-19 pneumonia are present. Other processes such as influenza pneumonia and organizing pneumonia, as can be seen with drug toxicity and connective tissue disease can cause a similar imaging pattern. CT of the abdomen and pelvis with IV contrast only performed on 12/08/2020 is reported to show no acute abdominal pelvic pathology appreciated. Hepatic steatosis. Lung bases consistent with COVID-19 pulmonary disease. PROGNOSIS: Good ACTIVITY: As tolerated. DIET: Regular DISCHARGE PLAN: Discharge home DISPOSITION: 01 Home, Self-Care. DISCHARGE INSTRUCTIONS: 1. Follow-up with primary care provider within 3 to 5 days discharge. 2. Advance diet as tolerated 3. Return to the emergency department if symptoms worsen ITEMS TO FOLLOWUP ON ON OUTPATIENT: 1. Resolution of abdominal pain. DISCHARGE CONDITION: Stable. TIME SPENT ON DISCHARGE: 35 minutes. Vital Signs/I&Os Vital Signs Date Time Temp Pulse Resp B/P (MAP) Pulse Ox O2 Delivery O2 Flow Rate FiO2 12/09/20 10:45 18 Room Air 12/09/20 05:32 98.0 62 122/69 (86) 92 12/07/20 09:00 2.0 I&O- Last 24 Hours up to 6 AM 12/09/20 06:00 Intake Total 1010 ml Output Total 1100 ml Balance -90 ml Laboratory Data Labs 24H Laboratory Tests 2 12/08/20 19:00: Lactic Acid Level 2.0 12/09/20 07:07: Immature Granulocyte % (Auto) 2.6, Neutrophils (%) (Auto) 71.3H, Lymphocytes (%) (Auto) 16.4L, Monocytes (%) (Auto) 9.5H, Eosinophils (%) (Auto) 0.0, Basophils (%) (Auto) 0.2, Neutrophils # (Auto) 7.5, Lymphocytes # (Auto) 1.7, Monocytes # (Auto) 1.0H, Eosinophils # (Auto) 0.0, Basophils # (Auto) 0.0, Nucleated Red Blood Cells % (auto) 0.0, Anion Gap 5L, Glomerular Filtration Rate > 60.0, Calcium Level 8.1L, Magnesium Level 1.9, Lipase 1159H CBC/BMP Laboratory Tests 12/09/20 07:07 Microbiology Microbiology 12/08/20 Stool Occult Blood (MARY KAY) - Final, Complete Discharge Medications Scheduled PRN Hydrocodone/Acetaminophen (Hydrocodone-Acetamn 7.5-325/15) 15 Ml Solution, 10 ML PO Q4HP PRN for SEVERE PAIN (PS 8-10) Ondansetron HCl (Zofran) 4 Mg Tablet, 1 TAB PO Q6HP PRN for NAUSEA Allergies Coded Allergies: Penicillins (Verified Allergy, Unknown, SOB, 12/06/20) МАРИЯ PRIDE DO Dec 09, 2020 16:02
--- NOTE | 2020-12-13 09:30 | CR.PDOC ---
General Surgery Consultation Date of Consultation 12/08/20 History and Physical CONSULT REPORT FOR: Dr. Miguel Keller (hospitalist service) REASON FOR CONSULTATION: abdominal pain HISTORY OF PRESENT ILLNESS: Patient is currently admitted in the hospital since 12/06/2020 after they were instructed to go to the emergency room for suspicion of carbon monoxide poisoning. He tells me that he had apparently new stove/range and no family somewhat was having some nausea concerning for department was called and it was noted he had an elevated carbon monoxide in the air from the leakage from the stove. In the emergency room both he and his were noted to be having abdominal pain. He was also noted to be having some fever. Covid testing was done and both he and his was noted to be positive for Covid and imaging shows patchy infiltrates in his lungs consistent with Covid pneumonia. He denies any shortness of breath though while he was here he did have some mild desaturations mainly caused by administration of the narcotics. According to him he and his also his daughter and their dog has been having some symptoms of abdominal pain, nausea, vomiting and diarrhea for the past 2 weeks. Intensity has been the same, 10 out of 10. He did not see anybody for this. He did not need any medications and was not using any pain medications at all despite the reported severity of the pain. The intensity was no better nor worse than when he was started 2 weeks ago. Here in the hospital he has been getting doses of narcotics including hydromorphone to control his pain. Of note he has had experience with narcotics as treatment as he has a longstanding history of back pain from ankylosing spondylitis and was on high doses of it but he weaned himself off the medication but a couple of weeks ago. Primary work-up including laboratories shows possibility of pancreatitis with elevated lipase. Initial lipase was 1028, amylase of 181. AST and ALT are also mildly elevated as well as alkaline phosphatase. Initial CT abdomen and pelvis was nonrevealing save for the bilateral pulmonary infiltrates consistent with a Covid pneumonia. He still has his gallbladder no stones were found. This was followed up with an MRI of the abdomen and still has normal findings. There were no anatomic variants like pancreatic divisum that was found. He did not have any evidence for cholelithiasis he does have a moderate to large hiatal hernia. He continues to complain of abdominal pain though he tells me that this has been less since this is been treated with narcotics. He wishes to go home. He has been tolerating liquids today. He still would have episodes of nausea. Particular concern by the primary service was for possibility of ischemic bowel as he was noted to have some mild elevated lactic acidosis of 3.6 earlier today and a repeat of 3 after bolus of 1 L of normal saline. Of note patient was been having some vomiting that day. I was asked to evaluate the patient for possible causes of his pain and assistance with further management PAST MEDICAL HISTORY: Eosinophilic esophagitis with history of food infective impaction in the esophagus needing balloon dilatations Schatzi ring dilated Ankylosing spondylitis Chronic pain syndrome with h/o chronic narcotic use in the past. Hiatal hernia and reflux PAST SURGICAL HISTORY: INCLUDES: 1. Multiple EGDs with dilatation (most recent Dr. More 2017) ALLERGIES: Please see below. FAMILY HISTORY: Ankylosing spondylitis in both parents, COPD, heart disease HOME MEDICATIONS: Please see below. REVIEW OF SYSTEMS: Patient has a longstanding history of back pain secondary to ankylosing spondylitis. He is not on any treatment for this at the moment. Previously has been treated with narcotics and he has been going to the pain clinic for this. According to him he weaned himself off all medications roughly 2 years ago and has not been on any narcotics since then. He has been having abdominal pain, nausea, vomiting, diarrhea for the past 2 weeks, low-grade fevers or chills intermittently that time. All his family members has been having the same symptoms. He has had poor oral intake due to this. He denies any chronic abdominal pain. He does have a history of food obstructions secondary to a moderate to large hiatal hernia and has had a need to have the impacted food endoscopically removed before. Last endoscopy was in 2018. He denies any chest pains. Despite having Covid pneumonia by imaging and also being Covid positive he denies being short of breath. He does have loss of sense of taste and smell for the past 2 weeks which came together with he has symptoms of abdominal pain. He denies any dysuria or hematuria. He is not a diabetic. He denies any bleeding or clotting disorder. He denies any unexplained weight loss. PHYSICAL EXAMINATION: VITALS SIGNS: Please see below. GENERAL APPEARANCE: Patient seen sitting up on the bed, reports pain about 7 out of 10 but looks fairly comfortable. He is pleasant and cooperative. He does not look to be in any distress. Does not look chronically ill SKIN: Warm and dry. HEENT: [Normocephalic, atraumatic. [place] palpebral conjunctiva, anicteric sclerae. Lips and mucosa appear mildly dry]. Peripheral pulses are regular. ABDOMEN: Abdomen is nondistended, soft, minimal tenderness over the mid epigastric without any rebound or guarding. . EXTREMITIES: No significant extremity edema ANCILLARIES: LABORATORY DATA: Notable for elevated lipase on presentation, still mildly elevated at 1000 as of yesterday. Also mildly elevated AST and ALT which has come down to normal. Minimal leukocytosis of 12,000 on presentation 10,000 today. IMAGING STUDIES: He is on multiple imaging studies including a CT abdomen pelvis on presentation 12/06/2020, followed by an abdominal MRI and the repeat CT abdomen pelvis done today. No evidence for cholelithiasis. No evidence for inflammation involving that of the pancreas. No bowel obstruction. No free perforation. No ascites. No evidence for any pancreatic anatomic anomaly like pancreatic divisum to explain the pancreatitis. IMPRESSION AND PLAN: Patient has been having abdominal pain for 2 weeks now which coincided with his symptoms of Covid including loss of taste and loss of smell. Interestingly he has multiple patchy infiltrates on his chest imaging but he is not really showing that much of respiratory symptoms. Also members of his family are having similar symptoms as him and they are also Covid positive. Stool occult blood is negative. He reports his stools are black in color but solid soft and not loose. Common causes of pancreatitis have been ruled out which includes cholelithiasis and pancreatic divisum. He does not have any severe systemic inflammatory response related to the pancreatitis nor any evidence of severe inflammation of his pancreas on multiple imaging studies. I also looked at his vascular anatomy and he has good flow through the celiac artery, superior mesenteric artery, iliacs and inferior mesenteric artery. Therefore I do not think he has mesenteric ischemia. In the absence of any verifiable causes of his pancreatitis or presumed pancreatitis, most likely this is a manifestation of his Covid. Most of the gastrointestinal manifestations are Covid are nonspecific though most of the time they also have respiratory symptoms unlike this patient. Nevertheless this has been going on for 2 weeks. He was able to manage this without any pain medications not even Tylenol so I do not think this needs to be treated with any narcotic at this point. He has prior experience with narcotics so I am not totally surprised that he is able to tolerate large doses of it. Patient wishes to go home I will leave that decision to the primary service with regards to the management of his Covid. I do not see any surgical issues that needs to be monitored nor acted upon at this point. Vital Signs Vital Signs Date Time Temp Pulse Resp B/P (MAP) Pulse Ox O2 Delivery O2 Flow Rate FiO2 12/09/20 10:45 18 Room Air 12/09/20 05:32 98.0 62 122/69 (86) 92 12/07/20 09:00 2.0 Laboratory Data Microbiology Microbiology 12/08/20 Stool Occult Blood (MARY KAY) - Final, Complete Home Medications Scheduled PRN Hydrocodone/Acetaminophen (Hydrocodone-Acetamn 7.5-325/15) 15 Ml Solution, 10 ML PO Q4HP PRN for SEVERE PAIN (PS 8-10) Ondansetron HCl (Zofran) 4 Mg Tablet, 1 TAB PO Q6HP PRN for NAUSEA Allergies Coded Allergies: Penicillins (Verified Allergy, Unknown, SOB, 12/06/20) ANETA MCNULTY MD Dec 13, 2020 09:29
== END 2020-12-09 12:20 | disposition home or self-care (01) | DRG 137 ==
LOC: M ED 11:23 → M ED INP 16:46 → M 4MAIN 21:18
PROVIDERS: ADMIT Internal Medicine Nephrology; ATTEND Family Medicine
PROC: 3E0333Z Introduction of Anti-inflammatory into Peripheral Vein, Percutaneous Approach (ICD-10-PCS; principal; 2020-12-07)
PROC: XW033E5 Introduction of Remdesivir Anti-infective into Peripheral Vein, Percutaneous Approach, New Technology Group 5 (ICD-10-PCS; 2020-12-07)
DX: U07.1 COVID-19 (principal); J12.82 Pneumonia due to coronavirus disease 2019; E87.2 Acidosis; R10.9 Unspecified abdominal pain; Z88.0 Allergy status to penicillin; K44.9 Diaphragmatic hernia without obstruction or gangrene; K21.9 Gastro-esophageal reflux disease without esophagitis; R74.01 Elevation of levels of liver transaminase levels; M45.9 Ankylosing spondylitis of unspecified sites in spine; G89.4 Chronic pain syndrome; K20.0 Eosinophilic esophagitis

== ENCOUNTER 2023-04-21 12:43 | Inpatient (IN) | payer OTHER ==
[~2023-04-21] VITALS: Ht 180.3 cm; Wt 100.8 kg
[~2023-04-21 12:43] MED LIST: HYDR1SOL22 PO; ZOFR4TAB16 PO
[2023-04-21] MEDS: MORPHINE 2 MG/ML 1ML VIAL IV ONE ×2 (15:28→20:06)
[2023-04-21 16:12] LABS: VENOUS BASE EXCESS -1.8 (-2.0-2.0); VENOUS HCO3 22.3 MMOL/L (23.0-27.0); VENOUS O2 SATURATION 98.2 % (60.0-80.0); VENOUS PARTIAL PRESSURE CO2 32.5 mmHg (38.0-50.0); VENOUS PARTIAL PRESSURE O2 119.7 mmHg (30.0-50.0); VENOUS PH 7.454 UNITS (7.330-7.430); VENOUS TOTAL CO2 23.3 MMOL/L (24.0-28.0)
[2023-04-21 16:14] LABS: MEAN CORPUSCULAR HEMOGLOBIN 11.9 pg (27.0-33.0); MEAN CORPUSCULAR HGB CONC 21.1 g/dl (32.0-36.5); MEAN CORPUSCULAR VOLUME 56.2 fl (80.0-96.0); PLATELET COUNT, AUTOMATED 488 10^3/uL (150-450); RED BLOOD COUNT 1.94 10^6/uL (4.30-6.10); WHITE BLOOD COUNT 5.1 10^3/uL (4.0-10.0)
[2023-04-21 16:15] LABS: HEMATOCRIT 10.9 % (42.0-52.0)
[2023-04-21 16:29] LABS: HEMOGLOBIN 2.3 g/dl (13.5-17.5)
[2023-04-21 16:41] LABS: ETHYL ALCOHOL (ETHANOL) < 0.003 % (0.000-0.010); LIPASE 243 U/L (12-53)
[2023-04-21 16:42] LABS: CK-MB VALUE MASS 1.7 NG/ML (<3.6); CPK CREATINE PHOSPHOKINASE 168 U/L (46-171); MB/CK RELATIVE INDEX 1.01 (< OR =4)
[2023-04-21 16:43] LABS: ALBUMIN 2.6 G/DL (3.2-5.2); ALKALINE PHOSPHATASE 118 U/L (46-116); ALT/SGPT 69 U/L (7.0-40); AST/SGOT 40 U/L (<34); BILIRUBIN,DIRECT 0.8 MG/DL (<0.4); BILIRUBIN,TOTAL 1.3 MG/DL (0.3-1.2); BLOOD UREA NITROGEN 9 MG/DL (9-23); CALCIUM LEVEL 7.4 MG/DL (8.5-10.1); CARBON DIOXIDE LEVEL 23 MMOL/L (20-31); CHLORIDE LEVEL 108 MMOL/L (98-107); CREATININE FOR GFR 0.59 MG/DL (0.70-1.30); GLOMERULAR FILTRATION RATE > 60.0 (>60); GLUCOSE, FASTING 115 MG/DL (60-100); POTASSIUM SERUM 4.1 MMOL/L (3.5-5.1); SODIUM LEVEL 137 MMOL/L (136-145); TOTAL PROTEIN 5.4 G/DL (5.7-8.2)
[2023-04-21 16:44] LABS: INR 1.54
[2023-04-21 16:47] LABS: THYROID STIMULATING HORMONE 1.707 uIU/ML (0.55-4.78)
[2023-04-21 17:07] LABS: ANISOCYTOSIS 2+; LYMPHOCYTES 20 % (16-44); MONOCYTES 3 % (0-5); NEUTROPHILS 77 % (28-66); POIKILOCYTOSIS 1+
[2023-04-21 17:08] LABS: HYPOCHROMASIA 3+; POLYCHROMASIA 1+
[2023-04-21] MEDS ORDERED: ISOVUE-370 76% 100ML VIAL As Ordered ONE (17:08)
[2023-04-21 17:09] LABS: MICROCYTOSIS 2+; OVALOCYTES 1+; TEAR DROP CELLS 1+
[2023-04-21 17:14] LABS: PLATELET ESTIMATE INCREASED (NORMAL)
[2023-04-21] MEDS: FUROSEMIDE 40MG/4ML VIAL IV ONE (17:55)
[2023-04-21 18:10] VITALS: BP 101/65; TEMP 98; O2SAT 99
[2023-04-21 18:25] VITALS: BP 110/68; TEMP 98; O2SAT 99
[2023-04-21 19:20] LABS: VITAMIN B12 LEVEL 934 PG/ML (211-911)
[2023-04-21 19:31] LABS: AMPHETAMINES LEVEL URINE NEGATIVE (NEGATIVE); BARBITURATES URINE NEGATIVE (NEGATIVE); COCAINE METABOLITE URINE NEGATIVE (NEGATIVE); METHADONE URINE NEGATIVE (NEGATIVE)
[2023-04-21 19:32] LABS: PHENCYCLIDINE URINE NEGATIVE (NEGATIVE)
[2023-04-21 19:34] LABS: BENZODIAZEPINES URINE POSITIVE (NEGATIVE); CANNABINOIDS URINE POSITIVE (NEGATIVE); OPIATES URINE POSITIVE (NEGATIVE)
[2023-04-21] MEDS ORDERED: HOME MED LIST COMPLETE! XX SCH (19:50)
[2023-04-21 20:26] VITALS: BP 103/52; TEMP 98; O2SAT 98
[2023-04-21 20:45] VITALS: BP 106/55; TEMP 96.9; O2SAT 100
[2023-04-21] MEDS ORDERED: ONDANSETRON 4MG 2ML VIAL IV PRN (21:30)
[2023-04-21 21:37] LABS: IRON (FE) 7 UG/DL (65-175); PERCENT SATURATION 2.8 % (19.7-50.0); TOTAL IRON BINDING CAPACITY 250 UG/DL (250-425)
[2023-04-21 21:40] LABS: FERRITIN 2.8 NG/ML (10.5-307.3)
[2023-04-21 21:45] VITALS: BP 104/50; TEMP 96.9; O2SAT 100
[2023-04-21 22:45] VITALS: BP 102/54; TEMP 96.3; O2SAT 100
[2023-04-21 23:29] LABS: RSV AMPLIFICATION NEGATIVE (NEGATIVE)
[2023-04-22] VITALS (7 sets, daily range): BP systolic 102–117; BP diastolic 54–65; TEMP 98.6–99.1; O2SAT 94–96
[2023-04-22] MEDS ORDERED: LR 1,000 ML IV SCH
[2023-04-22] MEDS: PANTOPRAZOLE 40MG VIAL IV SCH (01:19)
[2023-04-22 01:28] LABS: CK-MB VALUE MASS 1.9 NG/ML (<3.6); MB/CK RELATIVE INDEX 1.15 (< OR =4)
[2023-04-22] MEDS: FUROSEMIDE 100MG/10ML VIAL IV ONE (03:04)
[2023-04-22] MEDS: ACETAMINOPHEN *IV* 500 MG in IV 1 EA IV ONE (03:33)
[2023-04-22] MEDS: HYDROMORPHONE HCL 0.5 MG/ 0.5 ML SYRINGE IV PRN (04:25)
== END 2023-04-22 08:21 | disposition left against medical advice (07) | DRG 282 ==
LOC: M ED 12:43 → M ED INP 21:37 → ENRESERV 04-22 00:32 → M PCU 04-22 01:27
PROVIDERS: ADMIT Internal Medicine; ATTEND Internal Medicine
PROC: 30233N1 Transfusion of Nonautologous Red Blood Cells into Peripheral Vein, Percutaneous Approach (ICD-10-PCS; principal; 2023-04-21)
DX: K85.90 Acute pancreatitis without necrosis or infection, unspecified (principal); I50.9 Heart failure, unspecified; D62 Acute posthemorrhagic anemia; F10.10 Alcohol abuse, uncomplicated; F12.10 Cannabis abuse, uncomplicated; Z88.0 Allergy status to penicillin

== ENCOUNTER → 2023-06-18 | Outpatient (CLI) | payer OTHER ==
[2023-06-18 09:22] LABS: HEMATOCRIT 28.3 % (42.0-52.0); MEAN CORPUSCULAR HEMOGLOBIN 16.5 pg (27.0-33.0); MEAN CORPUSCULAR HGB CONC 24.7 g/dl (32.0-36.5); MEAN CORPUSCULAR VOLUME 66.6 fl (80.0-96.0); PLATELET COUNT, AUTOMATED 605 10^3/uL (150-450); RED BLOOD COUNT 4.25 10^6/uL (4.30-6.10); WHITE BLOOD COUNT 6.9 10^3/uL (4.0-10.0)
[2023-06-18 09:29] LABS: ALBUMIN 3.6 G/DL (3.2-5.2); ALKALINE PHOSPHATASE 84 U/L (46-116); ALT/SGPT 15 U/L (7.0-40); AST/SGOT 8 U/L (<34); BILIRUBIN,TOTAL 0.4 MG/DL (0.3-1.2); BLOOD UREA NITROGEN 13 MG/DL (9-23); CALCIUM LEVEL 8.8 MG/DL (8.5-10.1); CARBON DIOXIDE LEVEL 28 MMOL/L (20-31); CHLORIDE LEVEL 102 MMOL/L (98-107); CREATININE FOR GFR 0.75 MG/DL (0.70-1.30); GLOMERULAR FILTRATION RATE > 60.0 (>60); GLUCOSE, FASTING 87 MG/DL (60-100); POTASSIUM SERUM 4.7 MMOL/L (3.5-5.1); SODIUM LEVEL 136 MMOL/L (136-145); TOTAL PROTEIN 6.6 G/DL (5.7-8.2)
[2023-06-18 10:25] LABS: HEPATITIS C VIRUS ABY INDEX < 0.02 INDEX (<0.8)
[2023-06-18 10:37] LABS: GC DNA AMPLIFICATION NEGATIVE (NEGATIVE)
[2023-06-18 10:50] LABS: HIV 1&2 SCREEN NEGATIVE (NEGATIVE)
== END ==
LOC: M LAB 08:16
PROVIDERS: ATTEND Family Medicine
DX: F11.20 Opioid dependence, uncomplicated (principal)